=== PATIENT | male | born 2005 | race Two or more races ===

== ENCOUNTER 2025-04-25 12:49 | Emergency (ER) | payer BC ==
[~2025-04-25] VITALS: Ht 172.7 cm; Wt 54.4 kg
[2025-04-25 12:56] VITALS: BP 163/89; TEMP 98.1
[2025-04-25] MEDS ORDERED: METH4TAB17 PO (13:30)
[2025-04-25] MEDS ORDERED: GUAI-1105 PO (13:30)
[2025-04-25 14:00] VITALS: O2SAT 96
== END 2025-04-25 14:00 | disposition home or self-care (01) ==
LOC: ER 12:58
DX: J06.9 Acute upper respiratory infection, unspecified (principal); I25.2 Old myocardial infarction; F17.200 Nicotine dependence, unspecified, uncomplicated; B97.89 Other viral agents as the cause of diseases classified elsewhere; Z86.16 Personal history of COVID-19; Z88.6 Allergy status to analgesic agent